=== PATIENT | female | born 1975 | race American Indian/Alaskan Native ===

== ENCOUNTER 2017-11-03 10:05 | Emergency (ER) | payer OTHER ==
[2017-11-03 10:08] VITALS: RESP 20
[2017-11-03 10:54] LABS: BASO # 0.1 K/uL (0.0-0.2); EOS # 0.1 K/uL (0.0-0.7); EOS % 1.1 % (0.0-4.0); HEMOGLOBIN 10.3 g/dL (11.0-16.0); LYMPH # 2.4 K/uL (1.0-4.3); LYMPH % 39.4 % (20.0-40.0); MEAN CELL VOLUME 79.1 fL (81.0-99.0); MEAN CORPUSCULAR HEMOGLOBIN 26.5 pg (27.0-31.0); MEAN CORPUSCULAR HGB CONC 33.5 g/dL (33.0-37.0); MEAN PLATELET VOLUME 8.9 fL (7.2-11.7); MONO # 0.5 K/uL (0.0-0.8); MONO % 7.5 % (0.0-10.0); NEUT # 3.2 K/uL (1.8-7.0); RBC 3.88 Mil/uL (3.80-5.20); RED CELL DISTRIBUTION WIDTH 15.3 % (11.5-14.5); WHITE BLOOD COUNT 6.2 K/uL (4.8-10.8)
[2017-11-03 11:00] LABS: ALB/GLOB RATIO 1.1 (1.0-2.1); ALBUMIN 3.9 g/dL (3.5-5.0); ALT/SGPT 19 U/L (9-52); AST/SGOT 24 U/L (14-36); BLOOD UREA NITROGEN 13 mg/dL (7-17); CALCIUM 8.9 mg/dl (8.6-10.4); GFR AFRICAN-AMERICAN > 60; GFR NON-AFRICAN AMERICAN > 60
--- NOTE | 2017-11-03 11:11 | RAD ---
Chest x-ray single frontal view History: Chest pain. Comparison: None available. Findings: Mild venous congestion. Mild patchy increased markings at the left lung base. Tortuous aorta. Heart size within normal limits. Impression: Mild venous congestion. Mild patchy increased markings at the left lung base. Tortuous aorta.
--- NOTE | 2017-11-03 11:36 | C.PDOC ---
History Of Present Illness 42 y/o female presents to ED with complaints of sharp chest pain that began this morning. Denies SOB, fever, cough. Patient has hx of HTN and is compliant with medication. Time Seen by Provider: 11/03/17 10:16 Chief Complaint (Nursing): Chest Pain History Per: Patient History/Exam Limitations: no limitations Onset/Duration Of Symptoms: Hrs Current Symptoms Are (Timing): Still Present Quality: Sharp Associated Symptoms: denies: Nausea, Dyspnea, Diaphoresis, Syncope Modifying Factors: None Exacerbating Factors: None Alleviating Factors: None Recent travel outside of the [place]: No Past Medical History Reviewed: Historical Data, Nursing Documentation, Vital Signs Vital Signs: Last Vital Signs Temp 98.4 F 11/03/17 12:21 Pulse 99 H 11/03/17 12:21 Resp 20 11/03/17 12:21 BP 124/82 11/03/17 12:21 Pulse Ox 98 11/03/17 12:21 - Medical History PMH: Asthma, HTN Family History: States: No Known Family Hx - Social History Hx Alcohol Use: No Hx Substance Use: No - Immunization History Hx Tetanus Toxoid Vaccination: No Hx Influenza Vaccination: No Hx Pneumococcal Vaccination: No Review Of Systems Constitutional: Negative for: Fever, Chills Cardiovascular: Positive for: Chest Pain Respiratory: Negative for: Cough, Shortness of Breath Gastrointestinal: Negative for: Nausea, Vomiting, Abdominal Pain, Diarrhea Neurological: Negative for: Weakness, Numbness Physical Exam - Physical Exam Appears: Well, Non-toxic, No Acute Distress Skin: Normal Color, Warm, Dry Head: Atraumatic, Normacephalic Eye(s): bilateral: Normal Inspection Oral Mucosa: Moist Neck: Supple Chest: Symmetrical, No Tenderness Cardiovascular: Rhythm Regular Respiratory: Normal Breath Sounds, No Decreased Breath Sounds, No Rales, No Rhonchi, No Wheezing Gastrointestinal/Abdominal: Soft, No Tenderness, No Distention, No Guarding, No Rebound Extremity: Normal ROM, No Tenderness, No Pedal Edema Extremity: Bilateral: Normal Color And Temperature, Normal ROM Neurological/Psych: Oriented x3, Normal Speech, Normal Cognition ED Course And Treatment - Laboratory Results Result Diagrams: 11/03/17 10:36 11/03/17 10:36 O2 Sat by Pulse Oximetry: 100 (RA) Pulse Ox Interpretation: Normal - Other Rad CXR X-Ray: Viewed By Me, Read By Radiologist Interpretation: Chest x-ray single frontal view. History: Chest pain. Comparison: None available. Findings: Mild venous congestion. Mild patchy increased markings at the left lung base. Tortuous aorta. Heart size within normal limits. Impression: Mild venous congestion. Mild patchy increased markings at the left lung base. Tortuous aorta. Medical Decision Making Medical Decision Making: Ordered EKG, CXR and blood work. EKG Results: - Normal sinus rhythm at 94 bpm - Normal axis - Normal rate/rhythm Disposition - Disposition Referrals: Romel Hallman MD [Staff Provider] - Disposition: HOME/ ROUTINE Disposition Time: 11:10 Condition: GOOD Additional Instructions: Thank you for letting us take care of you today. The emergency medical care you received today was directed at your acute symptoms. If you were prescribed any medication, please fill it and take as directed. It may take several days for your symptoms to resolve. Return to the Emergency Department if your symptoms worsen, do not improve, or if you have any other problems. Please contact your doctor or call one of the physicians/clinics you have been referred to that are listed on the Patient Visit Information form that is included in your discharge packet. Bring any paperwork you were given at discharge with you along with any medications you are taking to your follow up visit. Our treatment cannot replace ongoing medical care by a primary care provider (PCP) outside of the emergency department. Thank you for allowing the [facility] team to be part of your care today. Follow up with your doctor as scheduled for re-evaluation and further management. Instructions: Chest Pain That Is Not Caused by the Heart (DC) Forms: [facility] (Fijian) - Clinical Impression Clinical Impression: Pleuritic pain - Scribe Statement The provider has reviewed the documentation as recorded by the Scribe Danette Bailey All medical record entries made by the Scribe were at my direction and personally dictated by me. I have reviewed the chart and agree that the record accurately reflects my personal performance of the history, physical exam, medical decision making, and the department course for this patient. I have also personally directed, reviewed, and agree with the discharge instructions and disposition.
[2017-11-03 12:22] VITALS: BP 124/82; PULSE 99; TEMP 98.4
[2017-11-04 08:06] VITALS: O2SAT 100
== END 2017-11-03 12:22 | disposition home or self-care (01) ==
LOC: C.ER 10:05
DX: R07.81 Pleurodynia (principal); I10 Essential (primary) hypertension

== ENCOUNTER 2018-02-22 11:18 | Emergency (ER) | payer OTHER ==
[2018-02-22 11:28] VITALS: BMI 32.4
--- NOTE | 2018-02-22 11:54 | C.PDOC ---
History Of Present Illness 42 yo female come in for evaluation of Right lower leg painful masses gradually developed for past 1 week. Pt reports, noted over anterior aspect Right lower leg, tender to touch. Otherwise, pt denies known trauma or injury, fever, chills , CP, SOB, dyspnea, palpitation, cough, wheezing, denies weakness, sensory or vascular deficits to RLE, denies BCP use, no risk factors for DVT. Pt reports, attend Physical therapy for lower back at present time. Ambulate to Ed for evaluation, not in any apparent distress. Time Seen by Provider: 02/22/18 11:43 Chief Complaint (Nursing): Abnormal Skin Integrity History Per: Patient Past Medical History Reviewed: Historical Data, Nursing Documentation, Vital Signs Vital Signs: Last Vital Signs Temp 99.2 F 02/22/18 11:28 Pulse 89 02/22/18 11:28 Resp 17 02/22/18 11:28 BP 109/75 02/22/18 11:28 Pulse Ox 98 02/22/18 12:10 - Medical History PMH: Asthma, Back Problems, HTN Family History: States: No Known Family Hx - Social History Hx Alcohol Use: Yes Hx Substance Use: No - Immunization History Hx Tetanus Toxoid Vaccination: No Hx Influenza Vaccination: No Hx Pneumococcal Vaccination: No Review Of Systems Except As Marked, All Systems Reviewed And Found Negative. Constitutional: Negative for: Fever, Chills ENT: Negative for: Throat Pain, Throat Swelling Cardiovascular: Negative for: Chest Pain, Palpitations, Edema Respiratory: Negative for: Cough, Shortness of Breath, Wheezing Gastrointestinal: Negative for: Nausea, Vomiting Musculoskeletal: Positive for: Leg Pain (Right lower leg pain) Skin: Negative for: Rash, Lesions Neurological: Negative for: Weakness, Altered Mental Status, Headache, Dizziness Physical Exam - Physical Exam Appears: Well, Non-toxic, No Acute Distress Skin: Normal Color, Warm, Dry, No Rash Head: Normacephalic Eye(s): bilateral: PERRL Nose: No Flaring Oral Mucosa: Moist Cardiovascular: Rhythm Regular Respiratory: No Decreased Breath Sounds, No Accessory Muscle Use, No Rales, No Rhonchi, No Stridor, No Wheezing Back: No CVA Tenderness, No Vertebral Tenderness Extremity: Normal ROM (RLE), No Pedal Edema, No Calf Tenderness, No Deformity, No Swelling, Other (Right lower leg: scattered tender soft swelling over anterior aspect tibia. No edema, no erythema, no flactulance.) Neurological/Psych: Oriented x3, Normal Speech, Normal Motor, Normal Sensation, Normal Reflexes ED Course And Treatment O2 Sat by Pulse Oximetry: 98 Pulse Ox Interpretation: Normal - CT Scan/US Doppler US RLE Other Rad Studies (CT/US): Read By Radiologist CT/US Interpretation: (-) DVT RLE Progress Note: On re-evaluation, pt is afebrile, hemodynamicaly stable. Non- toxic. Ambulatory in Ed with stable gait. ENT: no acute findings. FAROM of RLE, no neurovascular deficits. Doppler US (-) DVT RLE. Pt has clinical findings c/w Right lower leg pain. Pt advised. ref. to f/u with PMD in 2-3 days for re-eavluation. return to ED if any worsening or new changes. Disposition Counseled Patient/Family Regarding: Studies Performed, Diagnosis, Need For Followup - Disposition Referrals: Romel Hallman MD [Staff Provider] - Disposition: HOME/ ROUTINE Disposition Time: 12:26 Condition: STABLE Additional Instructions: Follow up with PMD in 2-3 days for re-evaluation and further treatment return to ED if any worsening or new changes. Instructions: Lower Extremity Muscle Strain Forms: [facility] (Maltese) - Clinical Impression Clinical Impression: Lower leg pain
[2018-02-22 12:46] VITALS: BP 110/72; PULSE 91; RESP 20; TEMP 98.8; O2SAT 99
--- NOTE | 2018-02-22 14:05 | VASCLAB ---
PROCEDURE: Right Lower Extremity Venous Duplex Exam. For HISTORY: Right lower leg pain PRIORS: None. TECHNIQUE: Right common femoral, femoral, popliteal and posterior tibial, peroneal and great saphenous veins were evaluated. Flow was assessed with color Doppler, compressibility, assessment of phasic flow and augmentation response. Report prepared by RAE Pino FINDINGS: RIGHT: 1. Common Femoral Vein: 1.1. Compressibility - Fully compressible: Thrombus - None: Flow - Phasic: Augmentation -Normal: Reflux - None. 2. Femoral Vein: 2.1. Compressibility - Fully compressible: Thrombus - None: Flow - Phasic: Augmentation -Normal: Reflux - None. 3. Popliteal Vein: 3.1. Compressibility - Fully compressible: Thrombus - None: Flow - Phasic: Augmentation -Normal: Reflux - None. 4. Posterior Tibial Vein: 4.1. Compressibility - Fully compressible: Thrombus - None: Flow - Phasic: Augmentation -Normal: Reflux - None. 5. Peroneal Vein: 5.1. Compressibility - Fully compressible: Thrombus - None: Flow - Phasic: Augmentation -Normal: Reflux - None. 6. Great Saphenous Vein: 6.1. Compressibility - Fully compressible: Thrombus -None: Flow - Phasic: Augmentation - Normal: Reflux - None. OTHER FINDINGS: IMPRESSION: No evidence of deep or superficial vein thrombosis of the right lower extremity with excellent venous flow. Normal valve function noted of the right side. Normal venous flow noted in the left common femoral vein.
== END 2018-02-22 12:46 | disposition home or self-care (01) ==
LOC: C.ER 11:18
DX: M79.661 Pain in right lower leg (principal); I10 Essential (primary) hypertension

== ENCOUNTER 2018-10-23 08:04 | Day surgery (SDC) | payer OTHER ==
[2018-10-22 10:14] VITALS: BMI 31.9
[2018-10-23 09:19] VITALS: PULSE 80; RESP 20; TEMP 98.4
[2018-10-23] MEDS ORDERED: Propofol 10 mg/ml Inj (20 ML) ONE (09:44)
[2018-10-23] MEDS ORDERED: Lidocaine Hydrochloride 5 ML INJ ONE (09:44)
--- NOTE | 2018-10-23 09:46 | CP.SDSHP ---
Same Day Surgery H & P - History Proposed Procedure: Egd Pre-Op Diagnosis: epigstric pain. heartburn - Previous Medical/Surgical History Cardiac: Hypertension Pulmonary: Asthma Endocrine/Metabolic: Obesity Previous Surgical History: tubal ligation. Umbilical hernia repair. LUQ abscess drainage in abdomen?? - Allergies Allergies: Allergies shellfish derived Allergy (Verified 10/22/18 10:15) SWELLING RASH/ITCHING - Physical Exam Vital Signs: Vital Signs 10/23/18 09:11 Temperature 98.4 F Pulse Rate 80 Respiratory 20 Rate Blood Pressure 143/88 Mental Status: Alert & Oriented x3 Neuro: WNL Heart: WNL Lungs: WNL GI: Other (LUQ scar noted) - Impression Impression: epigastric pain. heartburn Pt. Evaluated Today:Candidate for Anesthesia & Procedure: Yes - Date & Time Date: 10/23/18 Time: 09:45 Short Stay Discharge - Short Stay Discharge Admitting Diagnosis/Reason for Visit: EPIGASTRIC PAIN, HEARTBURN Disposition: HOME/ ROUTINE
[2018-10-23] MEDS ORDERED: Pantoprazole 40 mg EC Tab PO ONE (10:00)
[2018-10-23 10:21] VITALS: O2SAT 99
[2018-10-23 10:33] VITALS: BP 132/79
== END 2018-10-23 11:05 | disposition home or self-care (01) ==
LOC: C.ENDO 08:04
PROVIDERS: ATTEND Internal Medicine Gastroenterology
DX: K21.0 Gastro-esophageal reflux disease with esophagitis (principal); K29.50 Unspecified chronic gastritis without bleeding; E66.9 Obesity, unspecified; I10 Essential (primary) hypertension; J45.909 Unspecified asthma, uncomplicated
CPT/HCPCS: 43239; 84703; 88305; J2704